=== PATIENT | female | born 1965 | race Caucasian/White ===

== ENCOUNTER → 2019-09-25 | Outpatient (REF) | payer BC ==
[2019-09-25 15:07] LABS: OSMOLALITY URINE 284 MOSM/KG (500-800)
[2019-09-25 15:08] LABS: URIC ACID 2.4 MG/DL (2.6-6.0)
[2019-09-25 15:26] LABS: SODIUM,RANDOM URINE < 10 MEQ/L
== END ==
LOC: M LAB REF 13:38
PROVIDERS: ATTEND Internal Medicine
DX: E87.1 Hypo-osmolality and hyponatremia (principal)

== ENCOUNTER → 2019-10-20 | Outpatient (CLI) | payer BC ==
[~2019-10-20] MED LIST: DIAZ2TAB PO; MECL-86 PO; MECL12.589 PO
== END ==
LOC: M LABSMTC 08:45
PROVIDERS: ATTEND Anesthesiology
DX: Z01.818 Encounter for other preprocedural examination (principal); Z11.59 Encounter for screening for other viral diseases
CPT/HCPCS: C9803; U0003

== ENCOUNTER → 2019-10-23 | Outpatient (CLI) | payer BC ==
[~2019-10-23] MED LIST changes: +PROHANCE 279.3MG/ML 15ML VIAL As Ordered ONE; +ePHEDrine SULFATE 25 MG/5 ML(5MG/ML) SYRINGE ONE; +propofoL 200 MG/20 ML VIAL ONE
[2019-10-23 11:02] VITALS: BP 125/60
--- NOTE | 2019-10-23 14:44 | REP ---
MRI brain and IACs: 10/23/2019. Indication: Brain tumor. Vertigo. Technique: Multiplanar short and long tier sequences of the brain and IACs were performed including post gadolinium imaging. Comparison: 09/25/18 Findings: The patient is status post partial right temporal lobectomy. The resection cavity and perioperative brain are stable without areas of significant enhancement or change of signal to suggest tumor recurrence. There are no new additional areas of pathologic gadolinium enhancement intracranially. There is no hydrocephalus. The membranous labyrinth, IACs and cerebellopontine angles and are unremarkable. No significant mastoid fluid is present. There is no evidence of intracranial hemorrhage. Impression: Right temporal lobectomy in an associated additional postoperative sequelae without evidence of tumor recurrence. Unremarkable MRI of the IACs. Electronically Signed by Maurisio Hernández DO 10/23/2019 02:35 P
== END ==
LOC: M RAD 07:54
PROVIDERS: ATTEND Internal Medicine
DX: R42 Dizziness and giddiness (principal)
CPT/HCPCS: 70553; A9576

== ENCOUNTER → 2020-11-21 | Outpatient (CLI) | payer BC ==
[~2020-11-21] MED LIST changes: +CALC600T60 PO; +LEXA1TAB PO; +MECL-136 PO; -MECL12.589 PO; +MM S100C PO; -PROHANCE 279.3MG/ML 15ML VIAL As Ordered ONE; +QC F0.52 PO; +VITMTA PO; -ePHEDrine SULFATE 25 MG/5 ML(5MG/ML) SYRINGE ONE; -propofoL 200 MG/20 ML VIAL ONE
== END ==
LOC: M WHC 07:41
PROVIDERS: ATTEND Internal Medicine
DX: Z12.31 Encounter for screening mammogram for malignant neoplasm of breast (principal)

== ENCOUNTER → 2021-02-11 | Outpatient (CLI) | payer BC | LOC: M LABSMTC 09:21 | PROVIDERS: ATTEND Anesthesiology | DX: Z01.812 Encounter for preprocedural laboratory examination (principal) ==

== ENCOUNTER 2021-02-16 09:07 | Day surgery (SDC) | payer BC ==
[~2021-02-16] VITALS: Ht 167.6 cm; Wt 75.7 kg
[~2021-02-16 09:07] MED LIST changes: +NS 1,000 ML IV ONE
[2021-02-16] MEDS ORDERED: propofoL 200 MG/20 ML VIAL As Ordered ONE ×2 (09:16→10:46)
--- NOTE | 2021-02-16 11:21 | ROOR ---
Patient Name: Heydi Whitten Procedure Date: 02/16/2021 10:28 AM Date of : 1965 Age: 55 Room: [id number] Gender: Female Note Status: Finalized Procedure: Colonoscopy Indications: Screening for colorectal malignant neoplasm, Screening for colon cancer: Family history of colorectal cancer in distant relative(s) Providers: Robin Valdez MD Referring MD: Shelby HERCULES MD Requesting Provider: Medicines: Monitored Anesthesia Care Complications: No immediate complications. Procedure: Pre-Anesthesia Assessment: - Prior to the procedure, a History and Physical was performed, and patient medications and allergies were reviewed. The patient is competent. The risks and benefits of the procedure and the sedation options and risks were discussed with the patient. All questions were answered and informed consent was obtained. Patient identification and proposed procedure were verified by the physician, the nurse and the anesthesiologist in the procedure room. Mental Status Examination: alert and oriented. Airway Examination: normal oropharyngeal airway and neck mobility. Respiratory Examination: clear to auscultation. CV Examination: normal. Prophylactic Antibiotics: The patient does not require prophylactic antibiotics. Prior Anticoagulants: The patient has taken no previous anticoagulant or antiplatelet agents. ASA Grade Assessment: II - A patient with mild systemic disease. After reviewing the risks and benefits, the patient was deemed in satisfactory condition to undergo the procedure. The anesthesia plan was to use monitored anesthesia care (MAC). Immediately prior to administration of medications, the patient was re-assessed for adequacy to receive sedatives. The heart rate, respiratory rate, oxygen saturations, blood pressure, adequacy of pulmonary ventilation, and response to care were monitored throughout the procedure. The physical status of the patient was re-assessed after the procedure. The Colonoscope was introduced through the anus and advanced to the terminal ileum, with identification of the appendiceal orifice and IC valve. The colonoscopy was performed without difficulty. The patient tolerated the procedure well. The quality of the bowel preparation was good. The terminal ileum, ileocecal valve, appendiceal orifice, and rectum were photographed. Scope insertion time was 2 minutes. Scope withdrawal time was 8 minutes. The total duration of the procedure was 12 minutes. Findings: The perianal and digital rectal examinations were normal. Pertinent negatives include normal sphincter tone. The terminal ileum appeared normal. Three sessile polyps were found in the transverse colon. The polyps were 3 to 8 mm in size. These polyps were removed with a hot snare. Resection and retrieval were complete. Verification of patient identification for the specimen was done by the physician and nurse using the patient's name, date and medical record number. Estimated blood loss was minimal. Non-bleeding external and internal hemorrhoids were found during retroflexion. The hemorrhoids were medium-sized. Impression: - The examined portion of the ileum was normal. - Three 3 to 8 mm polyps in the transverse colon, removed with a hot snare. Resected and retrieved. - Non-bleeding external and internal hemorrhoids. Recommendation: - Patient has a contact number available for emergencies. The signs and symptoms of potential delayed complications were discussed with the patient. Return to normal activities tomorrow. Written discharge instructions were provided to the patient. - High fiber diet. - Continue present medications. - Await pathology results. - Repeat colonoscopy in 3 - 5 years for surveillance based on pathology results. - Return to GI clinic if persistent symptoms or new symptoms. - Telephone GI clinic for pathology results in 2 weeks. - Return to primary care physician. Procedure Code(s): --- Professional --- 55865, Colonoscopy, flexible; with removal of tumor(s), polyp(s), or other lesion(s) by snare technique Diagnosis Code(s): --- Professional --- Z12.11, Encounter for screening for malignant neoplasm of colon Z80.0, Family history of malignant neoplasm of digestive organs K64.8, Other hemorrhoids K63.5, Polyp of colon CPT copyright 2019 [employer]. All rights reserved. The codes documented in this report are preliminary and upon tennis director review may be revised to meet current compliance requirements. Robin Valdez MD Robin Valdez MD 02/16/2021 11:20:33 AM Electronically signed by Robin Valdez MD Number of Addenda: 0 Note Initiated On: 02/16/2021 10:28 AM Estimated Blood Loss: Estimated blood loss was minimal.
[2021-02-16 11:35] VITALS: BP 168/95
== END 2021-02-16 11:45 | disposition home or self-care (01) ==
LOC: M OPP 09:07
PROVIDERS: ATTEND Internal Medicine Gastroenterology
DX: K63.5 Polyp of colon (principal); K64.8 Other hemorrhoids; Z80.0 Family history of malignant neoplasm of digestive organs; R19.5 Other fecal abnormalities; Z79.899 Other long term (current) drug therapy

== ENCOUNTER → 2021-04-23 | Outpatient (CLI) | payer BC ==
[~2021-04-23] MED LIST changes: -NS 1,000 ML IV ONE
--- NOTE | 2021-04-23 09:59 | REP ---
INDICATION: PAIN COMPARISON: None. TECHNIQUE: AP, lateral, bilateral oblique and sunrise views. FINDINGS: Moderate generalized arthritic changes include subchondral sclerosis along the tibial plateau and patellar contour as well as associated patellofemoral and predominately lateral tibiofemoral compartment narrowing and marginal osteophyte formation. No obvious acute fracture or dislocation. No effusion. IMPRESSION: Moderate generalized arthritic changes. <Electronically signed by Julius Ochoa > 04/23/21 0903
== END ==
LOC: M WUC 09:34
PROVIDERS: ATTEND Internal Medicine
DX: M17.11 Unilateral primary osteoarthritis, right knee (principal)

== ENCOUNTER → 2023-07-19 | Outpatient (REF) | payer BC | LOC: M SFHCWAGY 10:14 | PROVIDERS: ATTEND Advanced Practice Midwife | DX: Z12.4 Encounter for screening for malignant neoplasm of cervix (principal); R87.618 Other abnormal cytological findings on specimens from cervix uteri | CPT/HCPCS: 87624; G0123 ==

== ENCOUNTER → 2023-12-06 | Outpatient (CLI) | payer BC | LOC: M WHC 06:53 | PROVIDERS: ATTEND Advanced Practice Midwife | DX: Z12.31 Encounter for screening mammogram for malignant neoplasm of breast (principal) ==

== ENCOUNTER 2023-12-08 14:30 | Emergency (ER) | payer BC ==
[2023-12-08] MEDS ORDERED: ISOVUE-370 76% 100ML VIAL As Ordered ONE (15:23)
[2023-12-08 15:25] VITALS: BP 136/72; TEMP 98.5; O2SAT 100
[2023-12-08 15:34] LABS: BASO % 0.3 % (0.0-1.0); EOS # 0.1 10^3/uL (0.0-0.5); EOS % 1.2 % (0.0-3.0); HEMATOCRIT 38.4 % (36.0-47.0); LYMPH # 1.8 10^3/uL (1.5-5.0); LYMPH % 26.7 % (24.0-44.0); MEAN CORPUSCULAR HEMOGLOBIN 29.5 pg (27.0-33.0); MEAN CORPUSCULAR HGB CONC 33.9 g/dl (32.0-36.5); MEAN CORPUSCULAR VOLUME 87.1 fl (80.0-96.0); MONO # 0.5 10^3/uL (0.0-0.8); MONO % 6.9 % (2.0-8.0); NEUTROPHILS # 4.4 10^3/uL (1.5-8.5); NEUTROPHILS % 64.6 % (36.0-66.0); PLATELET COUNT, AUTOMATED 312 10^3/uL (150-450); RED BLOOD COUNT 4.41 10^6/uL (4.00-5.40); WHITE BLOOD COUNT 6.9 10^3/uL (4.0-10.0)
[2023-12-08] MEDS: MECLIZINE 25 MG TABLET PO ONE (15:41)
[2023-12-08 15:52] LABS: INR 0.95; PARTIAL THROMBOPLASTIN TIME 26.3 SECONDS (24.8-34.2); PROTHROMBIN TIME 12.4 SECONDS (12.5-14.5)
[2023-12-08 16:04] LABS: BLOOD UREA NITROGEN 11 MG/DL (9-23); CARBON DIOXIDE LEVEL 27 MMOL/L (20-31); CHLORIDE LEVEL 98 MMOL/L (98-107); CK-MB VALUE MASS 1.6 NG/ML (<3.6); CREATININE FOR GFR 0.65 MG/DL (0.55-1.30); GLOMERULAR FILTRATION RATE > 60.0 (>51); GLUCOSE, FASTING 90 MG/DL (60-100); POTASSIUM SERUM 4.5 MMOL/L (3.5-5.1); SODIUM LEVEL 132 MMOL/L (136-145)
[2023-12-08 16:10] LABS: CPK CREATINE PHOSPHOKINASE 146 U/L (34-145); MB/CK RELATIVE INDEX 1.09 (< OR =4)
[2023-12-08] MEDS: ONDANSETRON 4MG 2ML VIAL IV ONE (16:37)
[2023-12-08 17:06] LABS: CK-MB VALUE MASS 1.4 NG/ML (<3.6)
[2023-12-08 17:09] LABS: MB/CK RELATIVE INDEX 1.06 (< OR =4)
[2023-12-08] MEDS ORDERED: MECL-86 PO (17:43)
[2023-12-08 17:55] VITALS: BP 136/67; TEMP 99.2; O2SAT 100
[2023-12-09] MEDS ORDERED: UNRESOLVED CLARIFICATION ENTRY XX SCH (00:01)
== END 2023-12-08 18:23 | disposition home or self-care (01) ==
LOC: M ED 14:30
DX: R42 Dizziness and giddiness (principal); R56.9 Unspecified convulsions; F41.9 Anxiety disorder, unspecified; Z79.899 Other long term (current) drug therapy
CPT/HCPCS: 70450; 70496; 70498; 71045; 80047; 80048; 82550; 82553; 84484; 85025; 85610; 85730; 93005; 93041; 94760; 96374; 99285; J2405; Q9967

== ENCOUNTER → 2024-02-20 | Outpatient (CLI) | payer BC | LOC: M WUC 14:11 | PROVIDERS: ATTEND Internal Medicine | DX: R42 Dizziness and giddiness (principal) ==

== ENCOUNTER 2024-04-16 16:50 | Emergency (ER) | payer BC ==
[~2024-04-16] VITALS: Ht 167.6 cm; Wt 83.3 kg
[2024-04-16 16:51] VITALS: BP 158/80; TEMP 97.6; O2SAT 97
[2024-04-16] MEDS ORDERED: DIAZ2TAB (17:01)
== END 2024-04-16 19:43 | disposition home or self-care (01) ==
LOC: M ED 16:50
DX: S63.614A Unspecified sprain of right ring finger, initial encounter (principal); W01.0XXA Fall on same level from slipping, tripping and stumbling without subsequent striking against object, initial encounter; Y92.009 Unspecified place in unspecified non-institutional (private) residence as the place of occurrence of the external cause; Y93.9 Activity, unspecified; Y99.9 Unspecified external cause status

== ENCOUNTER → 2024-12-07 | Outpatient (CLI) | payer BC ==
[~2024-12-07] MED LIST changes: +DIAZ2TAB
== END ==
LOC: M WHC 07:03
PROVIDERS: ATTEND Internal Medicine
DX: Z12.31 Encounter for screening mammogram for malignant neoplasm of breast (principal)

== ENCOUNTER 2025-05-13 14:01 | Emergency (ER) | payer OTHER, BC ==
[~2025-05-13] VITALS: Ht 167.6 cm; Wt 82.0 kg
[2025-05-13 14:06] VITALS: BP 138/93; TEMP 98.5; O2SAT 98
[2025-05-13] MEDS ORDERED: OXYC1TAB23 PO (15:40)
== END 2025-05-13 16:01 | disposition home or self-care (01) ==
LOC: M ED 14:01
DX: S52.502A Unspecified fracture of the lower end of left radius, initial encounter for closed fracture (principal); W19.XXXA Unspecified fall, initial encounter; Y92.9 Unspecified place or not applicable; Y93.9 Activity, unspecified; Y99.9 Unspecified external cause status; Z79.899 Other long term (current) drug therapy